=== PATIENT | male | born 1975 | race Caucasian/White ===

== ENCOUNTER 2017-01-19 04:12 | Emergency (ER) | payer SELFPAY ==
[~2017-01-19] VITALS: Ht 177.8 cm; Wt 77.1 kg
[2017-01-19 04:15] VITALS: BP 139/75
[2017-01-19] MEDS ORDERED: Bacitracin Oint UD TOPIC ONE (05:02)
[2017-01-19] MEDS ORDERED: IBUPROFEN600 MG ORAL (05:07)
[2017-01-19] MEDS ORDERED: BACITRACIN ZIN1 EACH TOPIC (05:07)
[2017-01-19 05:30] VITALS: BP 110/75
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
== END 2017-01-19 05:30 | disposition home or self-care (01) ==
LOC: EDBD 04:12 → EMR 04:32
DX: S51.811A Laceration without foreign body of right forearm, initial encounter (principal); W22.8XXA Striking against or struck by other objects, initial encounter; Y92.019 Unspecified place in single-family (private) house as the place of occurrence of the external cause